=== PATIENT | male | born 1950 | race Caucasian/White ===

== ENCOUNTER 2019-04-21 14:23 | Day surgery (SDC) | payer OTHER | END 2019-04-21 23:51 | disposition home or self-care (01) | LOC: US 14:23 | DX: C76.0 Malignant neoplasm of head, face and neck (principal) | CPT/HCPCS: 38505; 76942; 88305; 88341; 88342 ==

== ENCOUNTER 2019-05-27 09:38 | Day surgery (SDC) | payer OTHER ==
[~2019-05-27] VITALS: Ht 170.2 cm; Wt 138.3 kg
[~2019-05-27 09:38] MED LIST: Amlodipine Besy10 MG PO; Aspir 8181 MG PO; Beta Carot10000 UNIT PO; CARV6.25 PO; CENTRUM SILVER1 EAC2 PO; CO Q-10100 MG PO; ELIQUIS5 M2 PO; ELIQUIS5 MG PO; LISI20 PO; Oyster Shell C500 MG PO; Zocor20 MG PO
--- NOTE | 2019-05-27 10:28 | NUR ---
Ambulatory in Day Surgery Surgical site prepped with 2% Chlorhexidine cloth wipe. History, Chart, Medications and Allergies reviewed before start of procedure.Pre-Op teaching done. Pt verbalizes understanding. Patient confirms NPO status and agrees with scheduled surgery. Patient States Post-Procedure ride home has been arranged.
--- NOTE | 2019-05-27 14:12 | NUR ---
TRANSFERED PT FROM PACU VIA GURNERY. REPORT FROM RAMIRO THOMPSON RN. PT'S VSS. PT TOLERATING ORAL FLUIDS. PT ON CONTINIOUS O2 AND BP MONITORING. PT STATES HE IS COMFORTABLE. PT'S AT BEDSIDE.
--- NOTE | 2019-05-27 14:31 | NUR ---
CHRISTINA RN EDUCATING PT AND PT'S REGARDING TUBE. PT SUCTIONED FOR EXCESS SECRETIONS. PT TOW. PT STATES IT FEELS BETTER.
--- NOTE | 2019-05-27 14:49 | NUR ---
PT TRANSFERRED TO CHAIR WITH 2 RN ASSIST. PT STATES IT FEELS BETTER TO BE SITTING UP. PT ON RA SA02 93-94%.
--- NOTE | 2019-05-27 15:29 | NUR ---
1523 PT MEETS D/C CRITERIA. PT AND PTS' PROVIDED WRITTEN AND ORAL D/C INSTRUCTIONS AND STATE NO FURTHER QUESTIONS. PT TRANSFERRED TO [facility] VIA BY RNS.
== END 2019-05-27 15:23 | disposition home or self-care (01) ==
LOC: ORSCMMR 09:38
PROVIDERS: Surgery
PROC: 0DH63UZ Insertion of Feeding Device into Stomach, Percutaneous Approach (ICD-10-PCS; principal; 2019-05-27 11:00)
PROC: 05HM33Z Insertion of Infusion Device into Right Internal Jugular Vein, Percutaneous Approach (ICD-10-PCS; principal; 2019-05-27 11:00)
PROC: B5131ZA Fluoroscopy of Right Jugular Veins using Low Osmolar Contrast, Guidance (ICD-10-PCS; principal; 2019-05-27 11:00)
DX: C32.9 Malignant neoplasm of larynx, unspecified (principal); R13.14 Dysphagia, pharyngoesophageal phase; I10 Essential (primary) hypertension; I48.91 Unspecified atrial fibrillation; E78.5 Hyperlipidemia, unspecified; E66.01 Morbid (severe) obesity due to excess calories; Z68.42 Body mass index [BMI] 45.0-49.9, adult; Z79.01 Long term (current) use of anticoagulants; Z79.899 Other long term (current) drug therapy; Z79.82 Long term (current) use of aspirin
CPT/HCPCS: 77001; C1769; C1788; J0690; J1642; J2704; J3010; J7120

== ENCOUNTER 2019-06-01 15:14 | Inpatient (IN) | payer OTHER ==
[~2019-06-01] VITALS: Ht 170.2 cm; Wt 128.4 kg
[2019-06-01 15:53] LABS: Hematocrit 43.1 % (37.0-53.0); Hemoglobin 14.3 g/dL (13.5-17.5); Mean Corpuscular HGB 30.8 pg (26.0-34.0); Mean Corpuscular HGB Conc 33.2 g/dL (31.5-36.5); Mean Platelet Volume 11.7 fL (9.1-12.4); Platelet Count 170 K/mm3 (150-400); RDW Coefficient Variation 12.4 % (11.7-14.2); RDW Standard Deviation 42.5 fL (35.1-46.3); Red Blood Cell Count 4.65 M/mm3 (4.30-5.90); White Blood Cell Count 10.91 K/mm3 (4.00-11.30)
[2019-06-01 16:01] LABS: Calcium, Blood 9.5 mg/dL (8.5-10.1); Creatinine, Blood 2.04 mg/dL (0.60-1.20); Potassium, Blood 3.5 mmol/L (3.5-5.5)
[2019-06-01 16:06] LABS: Mean Corpuscular Volume 93 fL (80-100)
[2019-06-01] MEDS ORDERED: IBUP800 PO (16:29)
--- NOTE | 2019-06-01 19:40 | NUR ---
ADMIT NOTE RECEIVED REPROT FROM DHRUV CALVO RN IN ED. PT TO ROOM VIA SALMA, SBA TRANSFERED TO BED. PT ORIENTED TO ROOM AND CALL LIGHT. EDUCATED ON FALL RISK AND USING CALL LIGHT FOR ASSISTANCE. PT REPORTS NOT FEELING WELL DURING RADIATION TREATMENT, REPORTS FEELING WEAK OVER THE LAST COUPLE OF DAYS. PT REPROTS PEG TUBE AND MEDIPORT PLACED ON Thursday05/27/19. PT ASKING FOR FOOD, THIS RN QUESTIONED PEG TUBE, PT STATES "ITS FOR WHEN I CANT SWALLOW ANYMORE." WHEN QUESTIONED ON RESIDUAL PINEDA COLOR LIQUID IN PEG TUBE PT STATES " I DIDNT WANT TO EAT THIS MORNING, BECAUSE NOTHING SOUNDS OR TASTE GOOD. SO MY SON GAVE ME A TUBE FEEDING." PEG TUBE UNCLAMPED WITH PINEDA COLORED LIQUID. SON REQUESTS THAT WE FLUSH PEG TUBE. MEDIPORT ACCESSED IN ED. CALLED DR FOLEY TO CLARIFY CARDIAC DIET ORDERS, NEW ORDERS FOR [facility] SOFT/CARDIAC DIET AND ORDERS TO FLUSH PEG TUBE AND ACCESS AND USE MEDIPORT. PT RECEIVED RADIATION THERAPY TODAY, NORMALLY RECEIVES IT DAILY. PT REPORTS LAST CHEMO TREATMENT, "THE THURSDAY BEFORE LAST". PT A&Ox4. CALM AND COOPERATIVE WITH CARE. PT AWAKE AND RESTING IN BED. SBA IN ROOM. PT DENIES PAIN, SOB AND NASUSEA AT THIS TIME. PT PROVIDED WITH JELLO AND PUDDING PER HIS REQUEST. PT CAME TO FLOOR WITH WRITTEN ORDERS, INPUT BY THIS RN, RECORDIST CHIEF PLANS TO REVIEW ORDERS INPUT. PT TO ROOM AT 1810. VSS. NO OTHER ACUTE CHANGES NOTED DURING SHIFT. REPORT GIVEN TO ONCOMING RN.
[2019-06-02 04:21] LABS: BASOPHILS ABSOLUTE AUTO 0.01 K/mm3 (0.00-0.23); BASOPHILS PERCENT AUTO 0 % (0-2); EOSINOPHILS PERCENT AUTO 2 % (0-6); Hematocrit 38.6 % (37.0-53.0); IMMATURE GRAN ABSOLUTE AUTO 0.03 K/mm3 (0.00-0.10); IMMATURE GRAN PERCENT AUTO 0 % (0-1); LYMPHOCYTES ABSOLUTE AUTO 0.62 K/mm3 (0.84-5.20); LYMPHOCYTES PERCENT AUTO 6 % (21-46); MONOCYTES ABSOLUTE AUTO 0.66 K/mm3 (0.16-1.47); MONOCYTES PERCENT AUTO 6 % (4-13); Mean Corpuscular HGB 31.2 pg (26.0-34.0); Mean Corpuscular HGB Conc 33.7 g/dL (31.5-36.5); Mean Corpuscular Volume 93 fL (80-100); Mean Platelet Volume 11.5 fL (9.1-12.4); NEUTROPHILS ABSOLUTE AUTO 8.76 K/mm3 (1.96-9.15); NEUTROPHILS PERCENT AUTO 85 % (41-73); Platelet Count 117 K/mm3 (150-400); RDW Coefficient Variation 12.5 % (11.7-14.2); RDW Standard Deviation 42.9 fL (35.1-46.3); Red Blood Cell Count 4.17 M/mm3 (4.30-5.90); White Blood Cell Count 10.28 K/mm3 (4.00-11.30)
[2019-06-02 04:37] LABS: Albumin, Blood 2.6 g/dL (3.4-5.0); Albumin/Globulin Ratio 0.7 (0.8-1.8); Bilirubin, Total 0.5 mg/dL (0.1-1.0); Bun/Creatinine Ratio 26.8 (12.0-20.0); Calcium, Blood 8.8 mg/dL (8.5-10.1); Creatinine, Blood 1.79 mg/dL (0.60-1.20); Globulin, Blood 3.6 g/dL (2.2-4.0); Magnesium, Blood 1.5 mg/dL (1.6-2.4); Potassium, Blood 3.1 mmol/L (3.5-5.5); Total Protein, Blood 6.2 g/dL (6.4-8.2)
--- NOTE | 2019-06-02 05:05 | NUR ---
LYING IN SEMI FOWLERS WITH EYES CLOSED. HAS RESTED WELL THIS SHIFT. ADMISSION HISTORY COMPLTED. TAKEN TO X RAY AND US COMPLETED AT BEDSIDE. STANDBY ASSIST WITH AMBULATION TO BATHROOM, TOLERATED WELL. URINATED 100ML EACH TIME HE HAS WENT TO THE BATHROOM. DENIES FURTHER NEEDS AT THIS TIME. SAFETY MEASURES IN PLACE. WILL GIVE HAND OFF TO ONCOMING SHIFT USING SBAR.
--- NOTE | 2019-06-02 07:47 | NUR ---
ASSUMED CARE OF PT- REPORT RECIEVED FROM NIGHT JOHN ROMO. PER REPORT PT HAS A MEDIPORT THAT IS ACCESSED AND A PEG TUBE THAT IS PATENT BUT NOT CURRENTLY IN USE. PER REPORT PEG TUBE PLACE IN THE EVENTUALLITY, WITH PT Dx LARYNGEAL CANCER, THAT HE WILL NOT BE ABLE TO EAT. PER REPORT PT SON HAS BEEN FEEDING THE PT THROUGH THIS TUBE WHEN PT DOES NOT WANT TO EAT. CONSULT FOR [facility] TO EXPLAIN THE PRUPOSE OF THE PEG TUBE FOR FEEDING THE PT WHEN HE CAN NOT EAT, NOT WHEN HE DOES NOT WANT TO EAT. WILL SPEAK TO PALLIATIVE CARE FOR ASSISTANCE WITH PT AND FAMILY EDUCATION ADVANCED CARE PLANNING.
--- NOTE | 2019-06-02 11:46 | NUR ---
CALLED DR FOLEY- PT HOME MEDS NOT YET ORDERED, SBP 150'S THIS MORNING. DR WILL ORDER HOME MEDS. PT CHANGED TO MEDICAL STATUS WITH NO TELE PER DR FOLEY.
--- NOTE | 2019-06-02 12:04 | NUR ---
Advance Directive education conducted. Upon receiving an admit referral for Advance Directive education, I visited patient. I covered the importance and process of the advance directive and left patient the advance directive form on his table. Patient wishes to go over these decisions with family. I will continue to remain available to patient and family.
--- NOTE | 2019-06-02 13:28 | NUR ---
Echocardiogram completed.
--- NOTE | 2019-06-02 19:23 | NUR ---
SHIFT SUMMARY- PT ALERT AND ORIENTED SBA TO THE BATHROOM D/T LINES AND TUBES. PT HAD A LARGE BM TODAY AND A FULL SHOWER. MEDIPORT ACCESSED IN THE ED ORDERS TO USE IN [place] OF PERIPHERAL IV. PT IS MEDICAL STATUS WITH NO TELE. TELE DC'D TODAY. PT IN AFIB CONT BIOX OCCASSIONALY ALARMS D/T LOW PULSE HOWEVER TELE ALWAYS SHOWED PULSE IN THE 100'S WHEN THIS HAPPENED. PT NO LONGER ON TELE. PT DECLINED HIS RADIATION TREATMENT TODAY, STATED HE DOESN'T FEEL WELL ENOUGH TO GO. PT HAD A TEARFUL MEETING WITH AND HIS SON ABOUT THE RADIATION MAKING HIM SICK SO HE HAS TO GO TO THE HOSPITAL, SO HE STOPS AND GETS BETTER BUT HE FEARS HE WILL BE RIGHT BACK AFTER RESUMING THE Tx.
--- NOTE | 2019-06-02 21:30 | NUR ---
CARE ASSUMPTION PT MEDICAL NO TELE STATUS. A&O X4. VSS. PT REPORTS RADIATION TX AT [facility] SCHEDULED FOR TOMORROW. RED AREA TO PT'S L SHOULDER BLADE AREA NOTED. PT REPORTS SHOULDER DISCOLORING RESULT OF USING ICY HOT & THEN APPLYING HEAT PAD. NS GTT INFUSING VIA MEDIPORT. PEG TUBE LLQ CLAMPED. WILL CONTINUE TO MONITOR AND PROVIDE CARE.
[2019-06-03 05:09] LABS: BASOPHILS ABSOLUTE AUTO 0.01 K/mm3 (0.00-0.23); BASOPHILS PERCENT AUTO 0 % (0-2); EOSINOPHILS ABSOLUTE AUTO 0.31 K/mm3 (0.00-0.68); EOSINOPHILS PERCENT AUTO 4 % (0-6); Hematocrit 36.5 % (37.0-53.0); Hemoglobin 12.1 g/dL (13.5-17.5); IMMATURE GRAN ABSOLUTE AUTO 0.03 K/mm3 (0.00-0.10); IMMATURE GRAN PERCENT AUTO 0 % (0-1); LYMPHOCYTES ABSOLUTE AUTO 0.49 K/mm3 (0.84-5.20); LYMPHOCYTES PERCENT AUTO 6 % (21-46); MONOCYTES ABSOLUTE AUTO 0.61 K/mm3 (0.16-1.47); MONOCYTES PERCENT AUTO 8 % (4-13); Mean Corpuscular HGB Conc 33.2 g/dL (31.5-36.5); Mean Corpuscular Volume 94 fL (80-100); Mean Platelet Volume 10.9 fL (9.1-12.4); NEUTROPHILS PERCENT AUTO 82 % (41-73); Platelet Count 102 K/mm3 (150-400); RDW Coefficient Variation 12.5 % (11.7-14.2); RDW Standard Deviation 43.4 fL (35.1-46.3); White Blood Cell Count 8.05 K/mm3 (4.00-11.30)
[2019-06-03 05:27] LABS: Albumin, Blood 2.8 g/dL (3.4-5.0); Albumin/Globulin Ratio 0.8 (0.8-1.8); Bilirubin, Total 0.4 mg/dL (0.1-1.0); Bun/Creatinine Ratio 20.5 (12.0-20.0); Creatinine, Blood 1.66 mg/dL (0.60-1.20); Globulin, Blood 3.5 g/dL (2.2-4.0); Magnesium, Blood 1.7 mg/dL (1.6-2.4); Potassium, Blood 3.1 mmol/L (3.5-5.5); Total Protein, Blood 6.3 g/dL (6.4-8.2)
--- NOTE | 2019-06-03 05:53 | NUR ---
CALL TO / Juan David 3.1 CALL TO MD BECK @ APPROX 0600 TO REPORT POTASSIUM OF 3.1 THIS AM W/ DIURETICS SCHEDULED IN AM. W/ ORDERS FOR IV KCL TO BE GIVEN, SEE EMAR.
--- NOTE | 2019-06-03 06:13 | NUR ---
SHIFT SUMMARY PT MEDICAL NO TELE STATUS. A&O X4. VSS. NS GTT INFUSING VIA MEDIPORT. PEG TUBE CLAMPED. PT REPORTS APPOINTMENT FOR RADIATION TX AT [facility] TODAY. WILL CONTINUE TO MONITOR AND PROVIDE CARE UNTIL REPORT OFF TO DAY SHIFT RN.
--- NOTE | 2019-06-03 08:40 | NUR ---
ASSUMED CARE PT ALERT AND ORIETNED. VS STABLE. BP ELEVATED. 02 SATS REMAIN ABOVE 90% ON RA. PT DENIES ANY PAIN. PT ABLE TO AMBULATE TO BATHROOM NEEDED INDEPENDENTLY. NS AND KCL INFUSING THROUGH MEDIPORT AT THIS TIME. PT REPORTS THAT HE DOES NOT HAVE RADIATION SCHEDULED TODAY AND THAT IT IS NEXT WEEK. PEG TUBE IN PLACE CLAMPED. PT REPORTS HE DOES NOT USE IT YET. WILL CONTINUE TO MONITOR CLOSELY.
[2019-06-03] MEDS ORDERED: ATOR10 (11:59)
[2019-06-03] MEDS ORDERED: DOCU100 PO (12:00)
[2019-06-03] MEDS ORDERED: FAMO20 PO (12:00)
--- NOTE | 2019-06-03 12:34 | NUR ---
UPDATE DR. FOLEY IN WITH DISCHARGE ORDERS. DISCHARGE INSTRUCTIONS PROVIDED. PT EDUCATED ON NEW MEDICATIONS AND MEDICATION CHANGES. MEDIPORT DEACCESSED WITH HEPARIN. ALL QUESTIONS ANSWERED. PT WAITING FOR HIS RIDE TO GET HERE AND THEN HE WILL BE TAKEN OUT BY WC.
== END 2019-06-03 13:15 | disposition home or self-care (01) | DRG 684 ==
LOC: ER 15:14 → PCU 16:58
PROVIDERS: Emergency Medicine; ADMIT Internal Medicine
DX: N17.9 Acute kidney failure, unspecified (principal); I48.91 Unspecified atrial fibrillation; I10 Essential (primary) hypertension; E83.42 Hypomagnesemia; C44.42 Squamous cell carcinoma of skin of scalp and neck; C32.9 Malignant neoplasm of larynx, unspecified; E78.5 Hyperlipidemia, unspecified; G47.33 Obstructive sleep apnea (adult) (pediatric); Z92.21 Personal history of antineoplastic chemotherapy; Z87.891 Personal history of nicotine dependence; Z79.01 Long term (current) use of anticoagulants; Z79.82 Long term (current) use of aspirin; Z79.899 Other long term (current) drug therapy
CPT/HCPCS: 71046; 76770; 80048; 80053; 83735; 83880; 85025; 85027; 93005; 93010; 93306; 94762; 96360; 96361; 99285-25; J1642; J1940; J3475; J3480; J7030; P9046

== ENCOUNTER 2019-06-03 01:02 | Day surgery (SDC) | payer OTHER ==
[~2019-06-03 01:02] MED LIST changes: +IBUP800 PO
[2019-06-03] MEDS ORDERED: ATOR10 (11:59)
[2019-06-03] MEDS ORDERED: DOCU100 PO (12:00)
[2019-06-03] MEDS ORDERED: FAMO20 PO (12:00)
== END 2019-06-03 23:16 | disposition home or self-care (01) ==
LOC: ATC 01:02
DX: E86.0 Dehydration (principal); C10.9 Malignant neoplasm of oropharynx, unspecified; C32.9 Malignant neoplasm of larynx, unspecified; C77.0 Secondary and unspecified malignant neoplasm of lymph nodes of head, face and neck; I10 Essential (primary) hypertension; E78.00 Pure hypercholesterolemia, unspecified; Z79.01 Long term (current) use of anticoagulants; Z79.899 Other long term (current) drug therapy; Z87.891 Personal history of nicotine dependence
CPT/HCPCS: J0690; J2704; J3010; J7120

== ENCOUNTER → 2019-06-13 | Outpatient (CLI) | payer OTHER ==
[~2019-06-13] MED LIST changes: +ATOR10 PO; +DOCU100 PO; +FAMO20 PO; +ZESTRIL40 M1 PO
[2019-06-13 15:56] LABS: BASOPHILS ABSOLUTE AUTO 0.01 K/mm3 (0.00-0.23); BASOPHILS PERCENT AUTO 0 % (0-2); EOSINOPHILS PERCENT AUTO 4 % (0-6); Hematocrit 32.5 % (37.0-53.0); Hemoglobin 10.5 g/dL (13.5-17.5); IMMATURE GRAN PERCENT AUTO 0 % (0-1); LYMPHOCYTES ABSOLUTE AUTO 0.52 K/mm3 (0.84-5.20); LYMPHOCYTES PERCENT AUTO 22 % (21-46); MONOCYTES ABSOLUTE AUTO 0.36 K/mm3 (0.16-1.47); MONOCYTES PERCENT AUTO 16 % (4-13); Mean Corpuscular HGB 30.3 pg (26.0-34.0); Mean Corpuscular HGB Conc 32.3 g/dL (31.5-36.5); Mean Corpuscular Volume 94 fL (80-100); Mean Platelet Volume 10.2 fL (9.1-12.4); NEUTROPHILS ABSOLUTE AUTO 1.33 K/mm3 (1.96-9.15); NEUTROPHILS PERCENT AUTO 57 % (41-73); Platelet Count 400 K/mm3 (150-400); RDW Coefficient Variation 12.5 % (11.7-14.2); RDW Standard Deviation 42.5 fL (35.1-46.3); Red Blood Cell Count 3.46 M/mm3 (4.30-5.90); White Blood Cell Count 2.32 K/mm3 (4.00-11.30)
[2019-06-13 16:04] LABS: Alanine Aminotransfer (ALT/SGP 21 U/L (12-78); Albumin, Blood 2.7 g/dL (3.4-5.0); Albumin/Globulin Ratio 0.7 (0.8-1.8); Alk Phos 65 U/L (50-136); Anion Gap 5 mmol/L (6-16); Aspartate Aminotrans (AST/SGOT 15 U/L (12-37); Bilirubin, Total 0.2 mg/dL (0.1-1.0); Blood Urea Nitrogen 17 mg/dL (8-24); Bun/Creatinine Ratio 13.6 (12.0-20.0); CO2, Blood 34 mmol/L (21-32); Calcium, Blood 9.3 mg/dL (8.5-10.1); Chloride, Blood 101 mmol/L (98-108); Creatinine, Blood 1.25 mg/dL (0.60-1.20); Globulin, Blood 3.9 g/dL (2.2-4.0); Glomerular Filtration Rate >60 (60-); Glucose, Blood 86 mg/dL (70-99); Potassium, Blood 3.6 mmol/L (3.5-5.5); Sodium, Blood 140 mmol/L (136-145); Total Protein, Blood 6.6 g/dL (6.4-8.2)
== END | disposition home or self-care (01) ==
LOC: LAB SHORT 15:32 → LAB 15:32
PROVIDERS: Internal Medicine Hematology & Oncology
DX: C32.9 Malignant neoplasm of larynx, unspecified (principal); C10.9 Malignant neoplasm of oropharynx, unspecified; C77.0 Secondary and unspecified malignant neoplasm of lymph nodes of head, face and neck; N17.9 Acute kidney failure, unspecified
CPT/HCPCS: 80053; 85025

== ENCOUNTER → 2019-06-20 | Outpatient (CLI) | payer OTHER ==
[~2019-06-20] MED LIST changes: +ATOR10; -ATOR10 PO; -ZESTRIL40 M1 PO
[2019-06-20 15:20] LABS: Hematocrit 34.4 % (37.0-53.0); Hemoglobin 11.3 g/dL (13.5-17.5); Mean Corpuscular HGB 30.8 pg (26.0-34.0); Mean Corpuscular HGB Conc 32.8 g/dL (31.5-36.5); Mean Corpuscular Volume 94 fL (80-100); Mean Platelet Volume 10.5 fL (9.1-12.4); Platelet Count 280 K/mm3 (150-400); RDW Coefficient Variation 12.6 % (11.7-14.2); RDW Standard Deviation 43.1 fL (35.1-46.3); Red Blood Cell Count 3.67 M/mm3 (4.30-5.90); White Blood Cell Count 6.73 K/mm3 (4.00-11.30)
[2019-06-20 15:32] LABS: Bun/Creatinine Ratio 10.5 (12.0-20.0); Creatinine, Blood 1.33 mg/dL (0.60-1.20); Potassium, Blood 3.5 mmol/L (3.5-5.5)
[2019-06-20 15:50] LABS: BAND PERCENT MAN 5 % (0-8); BASOPHILS PERCENT MAN 0 % (0-2); EOSINOPHILS ABSOLUTE MAN 0.06 K/mm3 (0.00-0.68); EOSINOPHILS PERCENT MAN 1 % (0-6); LYMPHOCYTES ABSOLUTE MAN 0.26 K/mm3 (0.84-5.20); LYMPHOCYTES PERCENT MAN 4 % (21-46); MONOCYTES PERCENT MAN 6 % (4-13); NEUTROPHILS ABSOLUTE MAN 5.98 K/mm3 (1.96-9.15); SEG NEUTROPHILS PERCENT MAN 84 % (41-73); TOTAL CELLS COUNTED 100
== END | disposition home or self-care (01) ==
LOC: LAB SHORT 14:54 → LAB 14:54
PROVIDERS: Internal Medicine Hematology & Oncology
DX: C10.9 Malignant neoplasm of oropharynx, unspecified (principal); C32.9 Malignant neoplasm of larynx, unspecified; C77.0 Secondary and unspecified malignant neoplasm of lymph nodes of head, face and neck
CPT/HCPCS: 36415; 80048; 85025

== ENCOUNTER 2019-08-21 17:46 | Emergency (ER) | payer OTHER ==
[~2019-08-21] VITALS: Ht 170.2 cm; Wt 113.4 kg
[~2019-08-21 17:46] MED LIST changes: -ATOR10; +ATOR10 PO
[2019-08-21] MEDS ORDERED: ZESTRIL40 M1 PO (18:08)
[2019-08-21 18:15] LABS: BASOPHILS ABSOLUTE AUTO 0.01 K/mm3 (0.00-0.23); BASOPHILS PERCENT AUTO 0 % (0-2); EOSINOPHILS ABSOLUTE AUTO 0.22 K/mm3 (0.00-0.68); EOSINOPHILS PERCENT AUTO 3 % (0-6); Hematocrit 32.5 % (37.0-53.0); Hemoglobin 10.7 g/dL (13.5-17.5); IMMATURE GRAN ABSOLUTE AUTO 0.03 K/mm3 (0.00-0.10); IMMATURE GRAN PERCENT AUTO 0 % (0-1); LYMPHOCYTES ABSOLUTE AUTO 0.71 K/mm3 (0.84-5.20); LYMPHOCYTES PERCENT AUTO 10 % (21-46); MONOCYTES ABSOLUTE AUTO 0.62 K/mm3 (0.16-1.47); MONOCYTES PERCENT AUTO 9 % (4-13); Mean Corpuscular HGB 31.8 pg (26.0-34.0); Mean Corpuscular HGB Conc 32.9 g/dL (31.5-36.5); Mean Corpuscular Volume 96 fL (80-100); Mean Platelet Volume 10.8 fL (9.1-12.4); NEUTROPHILS ABSOLUTE AUTO 5.37 K/mm3 (1.96-9.15); NEUTROPHILS PERCENT AUTO 77 % (41-73); Platelet Count 172 K/mm3 (150-400); RDW Coefficient Variation 15.3 % (11.7-14.2); RDW Standard Deviation 54.5 fL (35.1-46.3); Red Blood Cell Count 3.37 M/mm3 (4.30-5.90); White Blood Cell Count 6.96 K/mm3 (4.00-11.30)
[2019-08-21 18:37] LABS: Albumin, Blood 2.9 g/dL (3.4-5.0); Albumin/Globulin Ratio 0.7 (0.8-1.8); Bilirubin, Total 0.7 mg/dL (0.1-1.0); Bun/Creatinine Ratio 14.2 (12.0-20.0); Calcium, Blood 10.7 mg/dL (8.5-10.1); Creatinine, Blood 1.83 mg/dL (0.60-1.20); Potassium, Blood 3.9 mmol/L (3.5-5.5); Total Protein, Blood 6.9 g/dL (6.4-8.2); Troponin I 0.031 ng/mL (0.000-0.040)
[2019-08-21 21:13] LABS: Magnesium, Blood 1.2 mg/dL (1.6-2.4)
== END 2019-08-21 22:17 | disposition home or self-care (01) ==
LOC: ER 17:46
PROVIDERS: Emergency Medicine
DX: I48.91 Unspecified atrial fibrillation (principal); R55 Syncope and collapse; I10 Essential (primary) hypertension; E78.5 Hyperlipidemia, unspecified; Z87.891 Personal history of nicotine dependence
CPT/HCPCS: 36415; 71045; 80053; 83735; 83880; 84484; 85025; 93005; 93010; 96361; 96374; 99284-25; J7030

== ENCOUNTER 2020-12-21 00:58 | Day surgery (SDC) | payer OTHER ==
[~2020-12-21 00:58] MED LIST changes: +ZESTRIL40 M1 PO
== END 2020-12-21 23:11 | disposition home or self-care (01) ==
LOC: WOUND 00:58
DX: L59.8 Other specified disorders of the skin and subcutaneous tissue related to radiation (principal); C32.9 Malignant neoplasm of larynx, unspecified; Z87.891 Personal history of nicotine dependence
CPT/HCPCS: G0463

== ENCOUNTER 2020-12-26 04:43 | Day surgery (SDC) | payer OTHER | END 2020-12-26 22:58 | disposition home or self-care (01) | LOC: HBO 04:43 → EDSTATUS 09:59 → HBO 22:58 | DX: L59.8 Other specified disorders of the skin and subcutaneous tissue related to radiation (principal); C32.9 Malignant neoplasm of larynx, unspecified | CPT/HCPCS: G0277 ==

== ENCOUNTER 2020-12-27 09:31 | Day surgery (SDC) | payer OTHER | END 2020-12-27 22:46 | disposition home or self-care (01) | LOC: HBO 09:31 | DX: L59.8 Other specified disorders of the skin and subcutaneous tissue related to radiation (principal); C32.9 Malignant neoplasm of larynx, unspecified; Y84.2 Radiological procedure and radiotherapy as the cause of abnormal reaction of the patient, or of later complication, without mention of misadventure at the time of the procedure | CPT/HCPCS: G0277 ==

== ENCOUNTER 2020-12-28 04:19 | Day surgery (SDC) | payer OTHER | END 2020-12-28 23:10 | disposition home or self-care (01) | LOC: HBO 04:19 | DX: L59.8 Other specified disorders of the skin and subcutaneous tissue related to radiation (principal); C32.9 Malignant neoplasm of larynx, unspecified | CPT/HCPCS: G0277 ==

== ENCOUNTER 2020-12-31 00:36 | Day surgery (SDC) | payer OTHER | END 2020-12-31 23:01 | disposition home or self-care (01) | LOC: HBO 00:36 | DX: L59.8 Other specified disorders of the skin and subcutaneous tissue related to radiation (principal); C32.9 Malignant neoplasm of larynx, unspecified | CPT/HCPCS: G0277 ==

== ENCOUNTER 2021-01-01 02:13 | Day surgery (SDC) | payer OTHER | END 2021-01-01 22:53 | disposition home or self-care (01) | LOC: HBO 02:13 | DX: L59.8 Other specified disorders of the skin and subcutaneous tissue related to radiation (principal); C32.9 Malignant neoplasm of larynx, unspecified | CPT/HCPCS: G0277 ==

== ENCOUNTER 2021-01-02 02:20 | Day surgery (SDC) | payer OTHER | END 2021-01-02 23:52 | disposition home or self-care (01) | LOC: HBO 02:20 | DX: L59.8 Other specified disorders of the skin and subcutaneous tissue related to radiation (principal); C32.9 Malignant neoplasm of larynx, unspecified | CPT/HCPCS: G0277 ==

== ENCOUNTER 2021-01-03 03:48 | Day surgery (SDC) | payer OTHER | END 2021-01-03 22:51 | disposition home or self-care (01) | LOC: HBO 03:48 | DX: L59.8 Other specified disorders of the skin and subcutaneous tissue related to radiation (principal); C32.9 Malignant neoplasm of larynx, unspecified | CPT/HCPCS: G0277 ==

== ENCOUNTER 2021-01-04 04:12 | Day surgery (SDC) | payer OTHER | END 2021-01-05 00:35 | disposition home or self-care (01) | LOC: HBO 04:12 | DX: L59.8 Other specified disorders of the skin and subcutaneous tissue related to radiation (principal); C32.9 Malignant neoplasm of larynx, unspecified | CPT/HCPCS: G0277 ==

== ENCOUNTER 2021-01-07 00:25 | Day surgery (SDC) | payer OTHER | END 2021-01-07 23:19 | disposition home or self-care (01) | LOC: HBO 00:25 | DX: L59.8 Other specified disorders of the skin and subcutaneous tissue related to radiation (principal); C32.9 Malignant neoplasm of larynx, unspecified | CPT/HCPCS: G0277 ==

== ENCOUNTER 2021-01-08 00:22 | Day surgery (SDC) | payer OTHER | END 2021-01-09 22:54 | disposition home or self-care (01) | LOC: HBO 00:22 | DX: L59.8 Other specified disorders of the skin and subcutaneous tissue related to radiation (principal); C32.9 Malignant neoplasm of larynx, unspecified | CPT/HCPCS: G0277 ==

== ENCOUNTER 2021-01-09 04:34 | Day surgery (SDC) | payer OTHER | END 2021-01-09 22:54 | disposition home or self-care (01) | LOC: HBO 04:34 | DX: L59.8 Other specified disorders of the skin and subcutaneous tissue related to radiation (principal); C32.9 Malignant neoplasm of larynx, unspecified | CPT/HCPCS: G0277 ==

== ENCOUNTER 2021-01-10 04:05 | Day surgery (SDC) | payer OTHER | END 2021-01-10 23:21 | disposition home or self-care (01) | LOC: HBO 04:05 | DX: L59.8 Other specified disorders of the skin and subcutaneous tissue related to radiation (principal); C32.9 Malignant neoplasm of larynx, unspecified | CPT/HCPCS: G0277 ==

== ENCOUNTER 2021-01-11 04:42 | Day surgery (SDC) | payer OTHER | END 2021-01-11 23:53 | disposition home or self-care (01) | LOC: HBO 04:42 | DX: L59.8 Other specified disorders of the skin and subcutaneous tissue related to radiation (principal); C32.9 Malignant neoplasm of larynx, unspecified | CPT/HCPCS: G0277 ==

== ENCOUNTER 2021-01-14 00:39 | Day surgery (SDC) | payer OTHER | END 2021-01-15 02:23 | disposition home or self-care (01) | LOC: HBO 00:39 | DX: L59.8 Other specified disorders of the skin and subcutaneous tissue related to radiation (principal); C32.9 Malignant neoplasm of larynx, unspecified | CPT/HCPCS: G0277 ==

== ENCOUNTER 2021-01-15 04:37 | Day surgery (SDC) | payer OTHER | END 2021-01-15 23:13 | disposition home or self-care (01) | LOC: HBO 04:37 | DX: L59.8 Other specified disorders of the skin and subcutaneous tissue related to radiation (principal); C32.9 Malignant neoplasm of larynx, unspecified; Y84.2 Radiological procedure and radiotherapy as the cause of abnormal reaction of the patient, or of later complication, without mention of misadventure at the time of the procedure | CPT/HCPCS: G0277 ==

== ENCOUNTER 2021-01-16 04:28 | Day surgery (SDC) | payer OTHER | END 2021-01-16 23:05 | disposition home or self-care (01) | LOC: HBO 04:28 | DX: L59.8 Other specified disorders of the skin and subcutaneous tissue related to radiation (principal); C32.9 Malignant neoplasm of larynx, unspecified | CPT/HCPCS: G0277 ==

== ENCOUNTER 2021-01-17 00:26 | Day surgery (SDC) | payer OTHER | END 2021-01-17 22:52 | disposition home or self-care (01) | LOC: HBO 00:26 | DX: L59.8 Other specified disorders of the skin and subcutaneous tissue related to radiation (principal); C32.9 Malignant neoplasm of larynx, unspecified | CPT/HCPCS: G0277 ==

== ENCOUNTER 2021-01-18 01:49 | Day surgery (SDC) | payer OTHER | END 2021-01-18 12:00 | disposition home or self-care (01) | LOC: HBO 01:49 | DX: L59.8 Other specified disorders of the skin and subcutaneous tissue related to radiation (principal); C32.9 Malignant neoplasm of larynx, unspecified; Y84.2 Radiological procedure and radiotherapy as the cause of abnormal reaction of the patient, or of later complication, without mention of misadventure at the time of the procedure | CPT/HCPCS: G0277 ==

== ENCOUNTER 2021-01-21 00:32 | Day surgery (SDC) | payer OTHER | END 2021-01-21 23:39 | disposition home or self-care (01) | LOC: HBO 00:32 | DX: L59.8 Other specified disorders of the skin and subcutaneous tissue related to radiation (principal); C32.9 Malignant neoplasm of larynx, unspecified | CPT/HCPCS: G0277 ==

== ENCOUNTER 2021-01-22 03:36 | Day surgery (SDC) | payer OTHER | END 2021-01-22 23:53 | disposition home or self-care (01) | LOC: HBO 03:36 | DX: L59.8 Other specified disorders of the skin and subcutaneous tissue related to radiation (principal); C32.9 Malignant neoplasm of larynx, unspecified | CPT/HCPCS: G0277 ==

== ENCOUNTER 2021-01-29 04:17 | Day surgery (SDC) | payer OTHER | END 2021-01-29 22:57 | disposition home or self-care (01) | LOC: HBO 04:17 | DX: L59.8 Other specified disorders of the skin and subcutaneous tissue related to radiation (principal); C32.9 Malignant neoplasm of larynx, unspecified; Y84.2 Radiological procedure and radiotherapy as the cause of abnormal reaction of the patient, or of later complication, without mention of misadventure at the time of the procedure | CPT/HCPCS: G0277 ==

== ENCOUNTER 2021-01-30 01:02 | Day surgery (SDC) | payer OTHER | END 2021-01-30 23:49 | disposition home or self-care (01) | LOC: HBO 01:02 | DX: L59.8 Other specified disorders of the skin and subcutaneous tissue related to radiation (principal); C32.9 Malignant neoplasm of larynx, unspecified | CPT/HCPCS: G0277 ==

== ENCOUNTER 2021-01-31 01:28 | Day surgery (SDC) | payer OTHER | END 2021-01-31 23:55 | disposition home or self-care (01) | LOC: HBO 01:28 | DX: L59.8 Other specified disorders of the skin and subcutaneous tissue related to radiation (principal); C32.9 Malignant neoplasm of larynx, unspecified | CPT/HCPCS: G0277 ==

== ENCOUNTER 2021-02-01 00:34 | Day surgery (SDC) | payer OTHER | END 2021-02-01 23:00 | disposition home or self-care (01) | LOC: HBO 00:34 | DX: L59.8 Other specified disorders of the skin and subcutaneous tissue related to radiation (principal); C32.9 Malignant neoplasm of larynx, unspecified | CPT/HCPCS: G0277 ==

== ENCOUNTER 2021-02-05 00:58 | Day surgery (SDC) | payer OTHER | END 2021-02-05 23:29 | disposition home or self-care (01) | LOC: HBO 00:58 | DX: L59.8 Other specified disorders of the skin and subcutaneous tissue related to radiation (principal); C32.9 Malignant neoplasm of larynx, unspecified | CPT/HCPCS: G0277 ==

== ENCOUNTER 2021-02-07 00:38 | Day surgery (SDC) | payer OTHER | END 2021-02-07 23:06 | disposition home or self-care (01) | LOC: HBO 00:38 | DX: L59.8 Other specified disorders of the skin and subcutaneous tissue related to radiation (principal); C32.9 Malignant neoplasm of larynx, unspecified | CPT/HCPCS: G0277 ==

== ENCOUNTER 2021-02-08 01:17 | Day surgery (SDC) | payer OTHER | END 2021-02-08 22:48 | disposition home or self-care (01) | LOC: HBO 01:17 | DX: L59.8 Other specified disorders of the skin and subcutaneous tissue related to radiation (principal); C32.9 Malignant neoplasm of larynx, unspecified | CPT/HCPCS: G0277 ==

== ENCOUNTER 2021-02-11 01:15 | Day surgery (SDC) | payer OTHER | END 2021-02-11 23:02 | disposition home or self-care (01) | LOC: HBO 01:15 | DX: L59.8 Other specified disorders of the skin and subcutaneous tissue related to radiation (principal); C32.9 Malignant neoplasm of larynx, unspecified; Y84.2 Radiological procedure and radiotherapy as the cause of abnormal reaction of the patient, or of later complication, without mention of misadventure at the time of the procedure | CPT/HCPCS: G0277 ==

== ENCOUNTER 2021-02-12 04:09 | Day surgery (SDC) | payer OTHER | END 2021-02-12 23:00 | disposition home or self-care (01) | LOC: HBO 04:09 | DX: L59.8 Other specified disorders of the skin and subcutaneous tissue related to radiation (principal); C32.9 Malignant neoplasm of larynx, unspecified | CPT/HCPCS: G0277 ==

== ENCOUNTER 2021-02-13 02:07 | Day surgery (SDC) | payer OTHER | END 2021-02-13 23:29 | disposition home or self-care (01) | LOC: HBO 02:07 | DX: L59.8 Other specified disorders of the skin and subcutaneous tissue related to radiation (principal); C32.9 Malignant neoplasm of larynx, unspecified | CPT/HCPCS: G0277 ==

== ENCOUNTER 2021-07-03 09:42 | Day surgery (SDC) | payer OTHER ==
[~2021-07-03] VITALS: Ht 167.6 cm; Wt 117.0 kg
[2021-07-03] MEDS ORDERED: BISM300CH (09:59)
[2021-07-03] MEDS ORDERED: ZOCOR20 MG (10:00)
[2021-07-03] MEDS ORDERED: CARV6.25 (10:00)
[2021-07-03] MEDS ORDERED: DABI150C (10:00)
[2021-07-03] MEDS ORDERED: FURO20 (10:00)
[2021-07-03] MEDS ORDERED: AMLO10 (10:00)
== END 2021-07-03 12:45 | disposition home or self-care (01) ==
LOC: ORSCSDS 09:42
PROVIDERS: Internal Medicine Gastroenterology
PROC: 0DBN8ZX Excision of Sigmoid Colon, Via Natural or Artificial Opening Endoscopic, Diagnostic (ICD-10-PCS; principal; 2021-07-03 11:15)
PROC: 0DB78ZX Excision of Stomach, Pylorus, Via Natural or Artificial Opening Endoscopic, Diagnostic (ICD-10-PCS; principal; 2021-07-03 11:15)
PROC: 0DBL8ZX Excision of Transverse Colon, Via Natural or Artificial Opening Endoscopic, Diagnostic (ICD-10-PCS; principal; 2021-07-03 11:15)
PROC: 0DBK8ZX Excision of Ascending Colon, Via Natural or Artificial Opening Endoscopic, Diagnostic (ICD-10-PCS; principal; 2021-07-03 11:15)
DX: K92.1 Melena (principal); K29.70 Gastritis, unspecified, without bleeding; D12.2 Benign neoplasm of ascending colon; D12.3 Benign neoplasm of transverse colon; D12.5 Benign neoplasm of sigmoid colon; Z87.11 Personal history of peptic ulcer disease; K57.30 Diverticulosis of large intestine without perforation or abscess without bleeding; K64.8 Other hemorrhoids; I48.20 Chronic atrial fibrillation, unspecified; Z79.01 Long term (current) use of anticoagulants; G47.33 Obstructive sleep apnea (adult) (pediatric); E66.01 Morbid (severe) obesity due to excess calories; Z68.41 Body mass index [BMI] 40.0-44.9, adult
CPT/HCPCS: 88305; 88342; J2001; J2250; J2704; J7120